=== PATIENT | female | born 1955 | race Caucasian/White ===

== ENCOUNTER → 2019-07-06 | Outpatient (CLI) | payer MEDICARE, OTHER ==
[2019-07-06 17:50] LABS: EOS # 0.2 (0.04-0.40); EOS % 2.9 % (1.0-5.0); HEMOGLOBIN 15.3 g/dL (12.5-16.0); LYMPH# 2.4 (1.50-4.00); MEAN CELL VOLUME 86 fl (78-100); MEAN CORPUSCULAR HEMOGLOBIN 28 pg (27-31); MEAN CORPUSCULAR HGB CONC 33 g/dL (33-37); MEAN PLATELET VOLUME 9.9 fl (7.4-10.4); MONO # 0.5 (0.20-0.80); NEU # 5.2 (1.40-6.50); PLATELET COUNT 256 K/mm3 (130-400); RED BLOOD COUNT 5.48 M/mm3 (4.10-5.30); RED CELL DISTRIBUTION WIDTH 13.4 % (11.5-14.5); WHITE BLOOD COUNT 8.4 K/mm3 (4.8-10.8)
[2019-07-06 18:00] LABS: ALBUMIN 4.2 g/dL (3.4-4.8); POTASSIUM 3.6 mmol/L (3.5-5.1)
[2019-07-06 18:01] LABS: CALCIUM 9.5 mg/dL (8.3-10.5)
[2019-07-06 18:02] LABS: TOTAL PROTEIN 7.3 g/dL (6.2-8.1)
[2019-07-06 18:04] LABS: TOTAL BILIRUBIN 0.4 mg/dL (0.2-1.2)
[2019-07-06 18:57] LABS: ERYTHROCYTE SEDIMENTATION RATE 7 mm/hr (0-30)
== END ==
LOC: LAB 17:29
PROVIDERS: Internal Medicine
DX: Z12.11 Encounter for screening for malignant neoplasm of colon (principal); I10 Essential (primary) hypertension; K90.9 Intestinal malabsorption, unspecified; E03.9 Hypothyroidism, unspecified; E78.5 Hyperlipidemia, unspecified

== ENCOUNTER → 2021-03-06 | Outpatient (CLI) | payer MEDICARE, OTHER ==
[2021-03-06 11:12] LABS: BASO # 0.05 (0.02-0.10); EOS # 0.31 (0.04-0.40); HEMATOCRIT 46.9 % (37.0-47.0); HEMOGLOBIN 15.3 g/dL (12.5-16.0); LYMPH# 1.95 (1.50-4.00); MEAN CELL VOLUME 85 fl (78-100); MEAN CORPUSCULAR HEMOGLOBIN 28 pg (27-31); MEAN CORPUSCULAR HGB CONC 33 g/dL (33-37); MEAN PLATELET VOLUME 9.9 fl (7.4-10.4); MONO # 0.39 (0.20-0.80); PLATELET COUNT 228 K/mm3 (130-400); RED BLOOD COUNT 5.49 M/mm3 (4.10-5.30); WHITE BLOOD COUNT 6.2 K/mm3 (4.8-10.8)
[2021-03-06 11:21] LABS: ALBUMIN 4.1 g/dL (3.4-4.8); POTASSIUM 4.6 mmol/L (3.5-5.1)
[2021-03-06 11:23] LABS: CALCIUM 9.6 mg/dL (8.3-10.5)
[2021-03-06 11:24] LABS: TOTAL PROTEIN 7.4 g/dL (6.2-8.1)
[2021-03-06 11:26] LABS: TOTAL BILIRUBIN 0.6 mg/dL (0.2-1.2)
[2021-03-06 11:30] LABS: MAGNESIUM 2.12 mg/dL (1.60-2.60)
[2021-03-06 12:15] LABS: URINE APPEARANCE CLOUDY; URINE BILIRUBIN NEGATIVE (NEGATIVE); URINE BLOOD TRACE (NEGATIVE); URINE COLOR YELLOW; URINE KETONE NEGATIVE (NEGATIVE); URINE LEUKOCYTE ESTERASE NEGATIVE (NEGATIVE); URINE NITRATE NEGATIVE (NEGATIVE); URINE PROTEIN(semi-quant) NEGATIVE (NEGATIVE); URINE UROBILINOGEN 4 mg/dL (NORMAL); URINE WBC 0-1 /hpf (0-3)
[2021-03-06 12:19] LABS: URINE MUCUS PRESENT (NOT PRESENT)
== END ==
LOC: AMSURD 10:55
PROVIDERS: Internal Medicine
DX: Z01.818 Encounter for other preprocedural examination (principal); K90.9 Intestinal malabsorption, unspecified

== ENCOUNTER → 2022-11-01 | Outpatient (CLI) | payer MEDICARE, OTHER ==
[2022-11-01 10:57] LABS: BASO # 0.04 K/mm3 (0.02-0.10); EOS # 0.14 K/mm3 (0.04-0.40); EOS % 2.3 % (1.0-5.0); HEMATOCRIT 49.2 % (37.0-47.0); LYMPH# 1.77 K/mm3 (1.50-4.00); MEAN CELL VOLUME 90 fl (78-100); MEAN CORPUSCULAR HEMOGLOBIN 29 pg (27-31); MEAN CORPUSCULAR HGB CONC 33 g/dL (33-37); MEAN PLATELET VOLUME 9.3 fl (7.4-10.4); MONO # 0.38 K/mm3 (0.20-0.80); NEU # 3.76 K/mm3 (1.40-6.50); PLATELET COUNT 241 K/mm3 (130-400); RED CELL DISTRIBUTION WIDTH 13.4 % (11.5-14.5); WHITE BLOOD COUNT 6.1 K/mm3 (4.8-10.8)
[2022-11-01 11:02] LABS: ALBUMIN 4.4 g/dL (3.4-4.8)
[2022-11-01 11:03] LABS: CALCIUM 9.9 mg/dL (8.3-10.5)
[2022-11-01 11:05] LABS: TOTAL PROTEIN 7.6 g/dL (6.2-8.1)
[2022-11-01 11:06] LABS: TOTAL BILIRUBIN 0.7 mg/dL (0.2-1.2)
== END ==
LOC: LAB 10:24
PROVIDERS: Internal Medicine
DX: E78.2 Mixed hyperlipidemia (principal); E11.9 Type 2 diabetes mellitus without complications; I10 Essential (primary) hypertension; F41.9 Anxiety disorder, unspecified; M25.512 Pain in left shoulder

== ENCOUNTER → 2023-10-30 | Outpatient (CLI) | payer MEDICARE, OTHER | LOC: MAMMO 08:30 | DX: Z12.31 Encounter for screening mammogram for malignant neoplasm of breast (principal); Z13.820 Encounter for screening for osteoporosis ==

== ENCOUNTER → 2023-10-30 | Outpatient (CLI) | payer MEDICARE, OTHER ==
[2023-10-30 09:34] LABS: BASO # 0.03 K/mm3 (0.02-0.10); EOS # 0.38 K/mm3 (0.04-0.40); EOS % 6.2 % (1.0-5.0); HEMOGLOBIN 14.4 g/dL (12.5-16.0); LYMPH# 1.65 K/mm3 (1.50-4.00); MEAN CELL VOLUME 88 fl (78-100); MEAN CORPUSCULAR HEMOGLOBIN 28 pg (27-31); MEAN CORPUSCULAR HGB CONC 32 g/dL (33-37); MEAN PLATELET VOLUME 9.3 fl (7.4-10.4); MONO # 0.34 K/mm3 (0.20-0.80); NEU # 3.73 K/mm3 (1.40-6.50); PLATELET COUNT 239 K/mm3 (130-400); RED BLOOD COUNT 5.12 M/mm3 (4.10-5.30); RED CELL DISTRIBUTION WIDTH 13.1 % (11.5-14.5); WHITE BLOOD COUNT 6.1 K/mm3 (4.8-10.8)
[2023-10-30 09:45] LABS: ALBUMIN 4.4 g/dL (3.4-4.8)
[2023-10-30 09:46] LABS: CALCIUM 9.3 mg/dL (8.3-10.5)
[2023-10-30 09:48] LABS: TOTAL PROTEIN 6.9 g/dL (6.2-8.1)
[2023-10-30 09:49] LABS: TOTAL BILIRUBIN 0.4 mg/dL (0.2-1.2)
[2023-10-30 09:54] LABS: MAGNESIUM 1.95 mg/dL (1.60-2.60)
[2023-10-30 10:13] LABS: PH-URINE 5.5 (5.0 - 8.0); URINE APPEARANCE CLEAR (CLEAR); URINE BILIRUBIN 1+ (NEGATIVE); URINE COLOR YELLOW (YELLOW); URINE GLUCOSE NEGATIVE (NEGATIVE); URINE KETONE NEGATIVE (NEGATIVE); URINE NITRATE NEGATIVE (NEGATIVE); URINE PROTEIN(semi-quant) NEGATIVE (NEGATIVE)
[2023-10-30 10:14] LABS: URINE BLOOD TRACE (NEGATIVE); URINE LEUKOCYTE ESTERASE TRACE (NEGATIVE); URINE MUCUS PRESENT (NOT PRESENT)
[2023-10-30 21:30] LABS: HEPATITIS C VIRUS ANTIBODY Negative (Negative)
== END ==
LOC: RAD 08:46 → MAMMO 09:00
PROVIDERS: Internal Medicine
DX: Z13.820 Encounter for screening for osteoporosis (principal); Z11.59 Encounter for screening for other viral diseases; M85.859 Other specified disorders of bone density and structure, unspecified thigh; E11.9 Type 2 diabetes mellitus without complications; E03.4 Atrophy of thyroid (acquired); I10 Essential (primary) hypertension; K90.9 Intestinal malabsorption, unspecified; E78.2 Mixed hyperlipidemia

== ENCOUNTER → 2023-11-12 | Outpatient (CLI) | payer MEDICARE, OTHER | LOC: LAB 17:36 | DX: Z12.11 Encounter for screening for malignant neoplasm of colon (principal) ==